=== PATIENT | female | born 2000 | race Caucasian/White ===

== ENCOUNTER 2024-11-25 22:32 | Emergency (ER) | payer OTHER, SELFPAY ==
[2024-11-25 22:38] VITALS: BP 118/90; BMI 27.8
[2024-11-25 22:41] VITALS: BP 118/90
[2024-11-25 23:00] VITALS: BP 92/63
--- NOTE | 2024-11-26 00:43 | ED.GENMED ---
History of Present Illness
General
Chief Complaint: Breathing Problem
Source: patient and family
Time Seen by Provider: 11/25/24 23:10
History of Present Illness
History of Present Illness:
This a 23-year-old female presents with acute shortness of breath. Symptoms started about 45 minutes prior to arrival. Patient states she has had this same event happened to her since she was 8 years old. Patient states that she gets a mild
headache and then suddenly feel like she cannot breathe. She states that some nights she can go outside and make it feel better. Today she went outside and started vomiting and could not catch her breath. She then came to the emergency
department. The patient states she wanted to wait it out at home family wanted her to get seen. The patient states on my evaluation feels much better. She did have a little bit alcohol tonight. She does intermittently vape. Patient states she
has had testing in the past which is all turned up negative. She states that the same is typical. She trialed her albuterol treatment at home without any improvement. However now she does feel better. On arrival to the emergency department the
patient was hyperventilating. Mom states that it is true that she has had intermittent episodes since she was a child. No fevers. No pleuritic pain. No calf pain. No leg swelling. Not on control
Past History
Past History
ED Past Medical History: Asthma
ED Past Surgical History: None
Social History
Tobacco: Non-smoker
Alcohol: Occasional
Drug: None
Phy Exam
Physical Exam
Physical Exam:
CONSTITUTIONAL Patient alert and oriented to person, place and time. Well-appearing. Vital signs reviewed.
HEAD atraumatic, normocephalic.
EYES eyelids normal to inspection, Extraocular muscles intact, Conjunctiva normal, Sclera normal.
NECK normal range of motion, Trachea midline, no jugular venous distention.
RESPIRATORY CHEST No respiratory distress noted, Chest expansion equal, Bilateral breath sounds clear.
CARDIOVASCULAR regular rate and rhythm, Heart sounds normal.
ABDOMEN abdomen nontender, Bowel sounds normal. No distention.
BACK normal inspection, no obvious deformities
UPPER EXTREMITY range of motion normal, Motor strength normal, no cyanosis, no edema.
LOWER EXTREMITY range of motion normal, Motor strength normal, no cyanosis, no edema.
NEURO Speech normal, No focal motor deficits, Musella coma scale 15, Memory normal, Cranial Nerves intact to screening exam.
SKIN skin warm, dry, and normal in color.
Course
Orders/Labs/Results
Orders:
Orders
11/25/24 22:48
EKG [Electrocardiogram (*1)] Stat
Reason for Study: Shortness of Breath
EKG- Treatment ONCE
11/25/24 22:49
CR Chest - 2 Views Urgent
Comment:
Reason For Exam: shortness of breath
Vital Signs
Initial and Last Documented VS:
Initial Vital Signs
Temp Pulse Resp BP Pulse Ox
98.0 F 105 22 118/90 98
11/25/24 22:38 11/25/24 22:38 11/25/24 22:38 11/25/24 22:38 11/25/24 22:38
Last Documented Vital Signs
Temp Pulse Resp BP Pulse Ox
98.0 F 110 35 92/63 98
11/25/24 22:38 11/25/24 23:00 11/25/24 23:00 11/25/24 23:00 11/25/24 23:00
MDM/Problems Addressed
MDM/Problems Addressed:
Acute dyspnea, hyperventilation
*Radiology
Radiology exam reviewed: all reviewed NAD by ED Provider
*Pulse Oximetry
Patient hypoxic: no
*EKG
Interpreted by ED Provider?: Yes
Interpretation: abnormal
Rate: tachycardiac
Rhythm: sinus
Interval: normal interval
Ischemia: no ischemia
*Medical Records Director Interpretation
Rate: normal
Interpretation: normal
Rhythm: sinus
*Critical Care Note
Total Time (30-74mins, 75-104mins- exclusive of procedures): Not Applicable
Data Reviewed
Source: patient and family
Further Testing Considered But Not Given:
Consider CTA but patient admits this has been ongoing for many years. In addition symptoms have since resolved
Patient Management
Escalation/DeEscalation of care consider admission/obs:
Symptoms have resolved without intervention. She otherwise appears well. Will refer to PCP for outpatient follow-up.
ED Attending Note
-
Portions of this chart may have been created with voice recognition software.� Occasional wrong word or��sound alike� substitutions may have occurred due to the inherent limitations of voice recognition software.
Discharge Plan
Departure
Patient Disposition: Home (Routine Discharge)
Date of Disposition: 11/26/24
Time of Disposition: 01:05
Patient with high blood pressure during this ER visit?: No
Discharge Problem:
Acute dyspnea
Instructions: Shortness of Breath (Dyspnea) (DC)
Prescriptions:
No Action
oxycodone 5 MG tablet
5 mg PO Q6HPRN PRN (Reason: pain) Qty: 12 0RF
ondansetron 4 mg tablet,disintegrating
4 mg PO Q8H PRN (Reason: nausea and vomiting) Qty: 10 0RF
Referrals:
UNKNOWN - PT DOES,NOT KNOW [Family Provider] -
Activity Restrictions/Additional Instructions:
Please see your doctor in the next 1 week for follow-up and reevaluation. Return immediately for difficulty breathing, fevers, pain when he takes deep breath, coughing up blood, leg pain or swelling or any other concerns. Please stop vaping.
Interventions
Interventions:
*Risk Screen - Suicide Last Done: 11/25/24 22:38
*General Assessment Last Done: 11/25/24 22:38
*Neglect/Abuse Screening Last Done: 11/25/24 22:38
*ED- Fall Risk Assessment Last Done: 11/25/24 22:57
*ED COVID-19 Vaccine History Last Done: 11/25/24 22:57
ED- Cardiac Assessment Last Done: 11/25/24 22:57
ED-Psychological Assessment Last Done: 11/25/24 22:57
ED- Pulmonary Assessment Last Done: 11/25/24 22:57
Discharge Date and Time
Print Language: SINHALA
== END 2024-11-26 01:17 | disposition home or self-care (01) ==
LOC: EMR 22:32
PROVIDERS: EMERGENCY PHYSICIAN Emergency Medicine
DX: R06.00 Dyspnea, unspecified (principal); J45.909 Unspecified asthma, uncomplicated
CPT/HCPCS: 99283; 71046; 93005